=== PATIENT | female | born 1965 | race Caucasian/White ===

== ENCOUNTER → 2016-10-15 | Outpatient (CLI) | payer OTHER ==
[~2016-10-15] MED LIST: ANAS1TAB PO; CALC600T10 PO; CETI10 PO; METF500T PO; OMEG-33 PO
[2016-10-15 12:10] LABS: AUTOMATED NEUTROPHIL # 6.2 TH/MM3 (1.8-7.7); BASOPHIL # 0.1 TH/MM3 (0-0.2); BASOPHIL % 1.3 % (0.0-2.0); EOSINOPHIL # 0.2 TH/MM3 (0-0.4); EOSINOPHIL % 2.3 % (0.0-4.0); HEMATOCRIT 40.3 % (35.0-46.0); HEMO FLAGS DIFF FINAL; LYMPH % 26.1 % (9.0-44.0); LYMPHOCYTE # 2.5 TH/MM3 (1.0-4.8); MEAN CELL VOLUME 84.8 FL (80.0-100.0); MEAN CORPUSCULAR HEMOGLOBIN 28.2 PG (27.0-34.0); MEAN CORPUSCULAR HGB CONC 33.3 % (32.0-36.0); MONO % 5.3 % (0.0-8.0); PLATELET COUNT 250 TH/MM3 (150-450); RED BLOOD COUNT 4.75 MIL/MM3 (4.00-5.30); RED CELL DISTRIBUTION WIDTH 13.2 % (11.6-17.2); WHITE BLOOD COUNT 9.6 TH/MM3 (4.0-11.0)
[2016-10-15 12:19] LABS: BLOOD, URINE NEG (NEG); GLUCOSE,URINE NEG (NEG); KETONE, URINE NEG (NEG); MUCUS URINE FEW /lpf (OCC); NITRITE,URINE NEG (NEG); RENAL EPITHELIAL CELLS <1 /hpf; SQUAMOUS EPITHELIAL CELL URINE 1 /hpf (0-5); TRANSITIONAL EPI CELLS, URINE <1 /hpf; URINE COLOR YELLOW (YELLW/STRAW)
[2016-10-15 12:57] LABS: BICARBONATE 27.8 MEQ/L (21.0-32.0); POTASSIUM 4.2 MEQ/L (3.5-5.1)
== END ==
LOC: CPRE 10:44
PROVIDERS: ATTEND Obstetrics & Gynecology
DX: Z01.812 Encounter for preprocedural laboratory examination (principal); N93.8 Other specified abnormal uterine and vaginal bleeding
CPT/HCPCS: 36415; 80048; 81001; 84703; 85025; 86850; 86900; 86901

== ENCOUNTER → 2016-10-16 | Day surgery (SDC) | payer OTHER ==
[~2016-10-16] VITALS: Ht 167.6 cm; Wt 111.6 kg
[~2016-10-16] MED LIST changes: +ACETAMINOPHEN 325 MG TAB PO PRN; +CHLORHEXIDINE GLUCONATE 2 % 1 PACK (2 CLOTHS) TOPICAL PRN; +DO NOT ADM ANY ANTICOAGULANT DRUGS PRN; +FAMOTIDINE 20 MG/2 ML VIAL ONE; +INSULIN HUMAN REGULAR 1,000 UNITS/10 ML VIAL SQ PRN; +KETOROLAC TROMETHAMINE 60 MG/2 ML (IM) VIAL IM ONE; +KETOROLAC TROMETHAMINE 60 MG/2 ML (IM) VIAL IM PRN; +LACTATED RINGER'S 1000 ML IV PRN; +METOPROLOL TARTRATE 25 MG TAB PO PRN; +MIDAZOLAM HCL 2 MG/2 ML VIAL ONE; +ONDANSETRON HCL 4 MG/2 ML VIAL IV PUSH ONE; +ONDANSETRON HCL 4 MG/2 ML VIAL IV PUSH PRN; +POVIDONE IODINE 5% (ANTISEPSIS KIT) 4 APPLICATIONS EACH NARE PRN; +PROPOFOL 200 MG/20 ML AMP IV ONE; +SODIUM CHLORID 0.9% 500 ML IV PRN; +ceFAZolin 2 GM PREMIX 50 ML IV SCH; +ceFAZolin 2 GM PREMIX 50 ML ONE; +oxyCODONE/ACETAMINOPHEN 5 MG/325 MG TAB PO PRN
[2016-10-16 08:39] VITALS: BP 147/84; PULSE 78; RESP 18; TEMP 98.2; O2SAT 98
[2016-10-16 13:51] VITALS: BP 136/87; PULSE 77; RESP 20; TEMP 97.4; O2SAT 97
--- NOTE | 2016-10-18 10:25 | MP ---
cc: DORINDA MCKEON DATE OF SURGERY: 10/16/2016 PREOPERATIVE DIAGNOSIS Thickened endometrium, endometrial cells on Pap. POSTOPERATIVE DIAGNOSIS Thickened endometrium, endometrial cells on Pap. PROCEDURE Examination under anesthesia, cervical dilatation, hysteroscopy, polypectomy and curettage. SURGEON Dr. Mckeon ANESTHESIA General via LMA. FLUIDS 900 cc crystalloid. ESTIMATED BLOOD LOSS Minimal. URINE OUTPUT 50 cc on straight cath prior to procedure. FINDINGS Uterus was approximately 6-8 weeks in size. No adnexal masses were palpable. DETAILS OF PROCEDURE The patient was taken to the operating room where general anesthesia was found to be adequate. She was prepped and draped in normal sterile fashion in the dorsal lithotomy position. The urinary bladder was emptied of urine using sterile technique. A speculum was placed in the vagina. A single-tooth tenaculum was applied to the anterior lip of the cervix. The cervix actually needed to be incised with a #15 blade scalpel due to stenosis. The cervix was then dilated gently with [employer] dilators to about a size 14. The hysteroscope was then placed. Saline was infused and a polyp was noted. This was resected with polyp forceps. The tubal ostia were then able to be visualized. The endometrium appeared atrophic. The hysteroscope was removed. Endocervical curettage was performed sharply and an endometrial curettage was performed sharply. All of the instruments were removed from the vagina. Hemostasis was noted. The sponge, lap, needle and instrument counts were correct. The patient was awakened from anesthesia and transferred to the recovery room in stable condition. Pathology was endocervical curettage, endometrial curettage and endometrial polyp. MD CHRISTOPHER Lazo/HANDY /12:43 PM /10:12 AM
== END | disposition home or self-care (01) ==
LOC: HSDC 07:52
PROVIDERS: ATTEND Obstetrics & Gynecology
DX: N84.0 Polyp of corpus uteri (principal); R93.9 Diagnostic imaging inconclusive due to excess body fat of patient; R87.619 Unspecified abnormal cytological findings in specimens from cervix uteri
CPT/HCPCS: 00952; 58558; 88305; J1885; J2250; J2405; J3010; J7120; J0690